=== PATIENT | female | born 1975 | race Caucasian/White ===

== ENCOUNTER 2017-02-24 09:17 | Emergency (ER) | payer OTHER ==
[~2017-02-24] VITALS: Ht 162.6 cm; Wt 58.2 kg
[2017-02-24 09:19] VITALS: BP 150/83
--- NOTE | 2017-02-24 09:25 | NUR ---
Patient ambulated to bed 4.
--- NOTE | 2017-02-24 09:26 | NUR ---
PATIENT PRESENTS TO ED WITH C/O RIGHT WRIST PAIN --WORKING ADJUSTING A MATTRESS IN A BOX FELT A PULL NO INCREASE WARMTH, NO SWELLING, NO DEFORMITIES NOTED +2 RADIAL PULSE <3 SEC CAP REFILL----LIMITED ROM 2 TO PAIN HX---DENIES RX---NONE; DENIES N/V/D; SKIN IS PINK/WARM/DRY; AAOX4 WITH EVEN AND STEADY GAIT; LUNGS CLEAR BL; HR EVEN AND REGULAR; PT DENIES ANY FEVER, CP, SOB, OR COUGH AT THIS TIME; PATIENT STATES PAIN OF 9/10 AT THIS TIME; VSS; PATIENT POSITIONED FOR COMFORT; HOB ELEVATED; BEDRAILS UP X2; BED DOWN. ER MD MADE AWARE OF PT STATUS.
--- NOTE | 2017-02-24 10:25 | NUR ---
DR CASTILLO EVALUATING AAO PT AT BEDSIDE
[2017-02-24] MEDS ORDERED: KETOROLAC 60 MG/2 ML VIAL IM ONE (10:30)
[2017-02-24 10:46] VITALS: BP 106/65
== END 2017-02-24 10:45 | disposition home or self-care (01) ==
LOC: MED 09:17
DX: S63.501A Unspecified sprain of right wrist, initial encounter (principal); W20.8XXA Other cause of strike by thrown, projected or falling object, initial encounter; Y93.89 Activity, other specified; Y92.89 Other specified places as the place of occurrence of the external cause; Y99.8 Other external cause status
CPT/HCPCS: 29125; 73110; 96372; 99284; J1885